=== PATIENT | female | born 1975 | race Caucasian/White ===

== ENCOUNTER 2017-04-30 05:26 | Emergency (ER) | payer BC ==
[2017-04-30] MEDS ORDERED: LORazepam 2 MG/ML MDV IVPUSH ONE (05:43)
[2017-04-30] MEDS ORDERED: Metoprolol Tartrate 5 MG/5 ML SDV IVPUSH ONE (05:43)
--- NOTE | 2017-04-30 05:51 | EDM.PDOC ---
ED HPI GENERAL MEDICAL PROBLEM - General Chief Complaint: Chest Pain Stated Complaint: CHEST PAIN/NUMBNESS Time Seen by Provider: 04/30/17 05:35 Source of Information: Reports: Patient History Limitations: Reports: No Limitations - History of Present Illness INITIAL COMMENTS - FREE TEXT/NARRATIVE: This is a 41-year-old male. Driving on on her way to [place] she had onset of shortness of breath and rapid beating heart beating rapidly onset of chest tightness with numbness in her arms felt dizzy like she was going to pass out. She pulled off the exit at [place] and took her anxiety medication and it seemed to ease up some but then when she pulled back on the highway at all seem to come back. She comes to the ER for evaluation. She's had these episodes before thought to be due to stress or anxiety and her most recent one was back in January. She has no history of cardiac disease. When I went into the room she does appear to be somewhat anxious and breathing rapidly. She denies any recent illnesses no [id number] medications. Treatments [employer]: Reports: Other Medication(s) Other Treatments [employer]: ativan Chest Pain Score (Numeric/FACES): 8 - Related Data Allergies Allergy/AdvReac Type Severity Reaction Status Date / Time No Known Allergies Allergy Verified 04/30/17 05:31 Home Meds: Home Meds Fexofenadine/Pseudoephedrine [Pat-D 24 Hour Tablet] 1 each PO DAILY [History] LORazepam [Ativan] 0.5 mg PO TID PRN 04/30/17 [History] Thyroid,Pork [[place] Thyroid] 120 mg PO DAILY 04/30/17 [History] Past Medical History HEENT History: Reports: Impaired Vision Other HEENT History: wears corrective lenses ADMISSIONS CONSULTANT History: Reports: Psychiatric History: Reports: Anxiety Endocrine/Metabolic History: Reports: Hypothyroidism - Past Surgical History GI Surgical History: Reports: Cholecystectomy Female Surgical History: Reports: Section Other Female Surgeries/Procedures: x3 Social & Family History - Tobacco Use Smoking Status *Q: Current Every Day Smoker Years of Tobacco use: 20 Packs/Tins Daily: 0.5 Used Tobacco, but Quit: No Second Hand Smoke Exposure: No - Caffeine Use Caffeine Use: Reports: Coffee - Recreational Drug Use Recreational Drug Use: No ED ROS GENERAL - Review of Systems Review Of Systems: See Below Constitutional: Denies: Fever, Chills HEENT: Reports: No Symptoms Respiratory: Reports: Shortness of Breath. Denies: Cough Cardiovascular: Reports: Chest Pain Endocrine: Reports: Other (History of hypothyroidism) GI/Abdominal: Denies: Diarrhea, Nausea, Vomiting : Reports: No Symptoms Musculoskeletal: Reports: No Symptoms Skin: Reports: No Symptoms Neurological: Reports: Dizziness, Numbness, Tingling Psychiatric: Reports: Anxiety Hematologic/Lymphatic: Reports: No Symptoms ED EXAM, GENERAL - Physical Exam Exam: See Below Exam Limited By: No Limitations General Appearance: Alert, WD/WN, Mild Distress Eye Exam: Bilateral Eye: Normal Inspection Ears: Normal External Exam Nose: Normal Inspection Throat/Mouth: Normal Lips, Other (Her voice has a tremor in it as she talks) Head: Normocephalic Neck: Normal Inspection, Supple Respiratory/Chest: Lungs Clear, Other (Rapid respirations with a rate approximately 20). No: Crackles, Rales, Rhonchi, Wheezing Cardiovascular: Regular Rate, Rhythm, Tachycardia GI/Abdominal: Soft, Non-Tender Back Exam: Full Range of Motion Extremities: Normal Inspection, Normal Range of Motion, Other (Complains of tingling in her hands, and she felt like she was having some spasms in her forearms) Neurological: Alert, Oriented Psychiatric: Anxious Skin Exam: Warm, Dry EKG INTERPRETATION EKG Date: 04/30/17 Time: 05:32 Rhythm: Other (Sinus tachycardia) EKG Interpretation Comments: Noted to have diffuse ST depression I believe rate related, there is no acute ST elevation noted Course - Vital Signs Last Recorded V/S: Last Vital Signs Temp 97.3 F 04/30/17 05:31 Pulse 106 H 04/30/17 05:50 Resp 22 H 04/30/17 05:31 BP 139/88 04/30/17 05:50 Pulse Ox 100 04/30/17 05:31 - Orders/Labs/Meds Labs: Laboratory Tests 04/30/17 04/30/17 Range/Units 05:41 05:41 WBC 11.34 H (3.98-10.04) K/mm3 RBC 4.51 (3.98-5.22) M/mm3 Hgb 14.6 (11.2-15.7) gm/L Hct 41.9 (34.1-44.9) % MCV 92.9 (79.4-94.8) fl MCH 32.4 H (25.6-32.2) pg MCHC 34.8 (32.2-35.5) g/dl RDW Std Deviation 42.9 (36.4-46.3) fL Plt Count 226 (182-369) K/mm3 MPV 9.6 (9.4-12.3) fl Neut % (Auto) 64.4 (34.0-71.1) % Lymph % (Auto) 25.4 (19.3-51.7) % [place] % (Auto) 7.5 (4.7-12.5) % Eos % (Auto) 2.0 (0.7-5.8) Baso % (Auto) 0.3 (0.1-1.2) % Neut # (Auto) 7.31 H (1.56-6.13) K/mm3 Lymph # (Auto) 2.88 (1.18-3.74) K/mm3 [place] # (Auto) 0.85 H (0.24-0.36) K/mm3 Eos # (Auto) 0.23 (0.04-0.36) K/mm3 Baso # (Auto) 0.03 (0.01-0.08) K/mm3 Sodium 135 L (136-145) mEq/L Potassium 3.4 L (3.5-5.1) mEq/L Chloride 99 (98-107) mEq/L Carbon Dioxide 22 (21-32) mEq/L Anion Gap 17.4 H (5-15) BUN 7 (7-18) mg/dL Creatinine 0.9 (0.55-1.02) mg/dL Est Cr Clr Drug Dosing 72.47 mL/min Estimated GFR (MDRD) > 60 (>60) mL/min BUN/Creatinine Ratio 7.8 L (14-18) Glucose 148 H (74-106) mg/dL Calcium 8.9 (8.5-10.1) mg/dL Total Bilirubin 1.4 H (0.2-1.0) mg/dL AST 17 (15-37) U/L ALT 31 (14-59) U/L Alkaline Phosphatase 33 L (46-116) U/L Troponin I < 0.017 (0.00-0.056) ng/mL Total Protein 8.1 (6.4-8.2) g/dl Albumin 4.3 (3.4-5.0) g/dl Globulin 3.8 gm/dL Albumin/Globulin Ratio 1.1 (1-2) TSH 3rd Generation 3.292 (0.358-3.74) uIU/mL Meds: Medications Discontinued Medications Generic Name Dose Route Start Last Admin Trade Name Miranda PRN Reason Stop Dose Admin Lorazepam 0.5 mg 04/30/17 05:43 04/30/17 05:50 Ativan IVPUSH 04/30/17 05:44 0.5 mg ONETIME ONE Administration Metoprolol Tartrate 5 mg 04/30/17 05:43 04/30/17 05:50 Lopressor IVPUSH 04/30/17 05:44 5 mg ONETIME ONE Administration - Re-Assessments/Exams Free Text/Narrative Re-Assessment/Exam: 04/30/17 07:12 After the medications IV the patient calmed down heart rates come down to 75 blood pressure 107/77 she is feeling good and she wants to go home. We discussed the idea of anxiety and panic attacks and rapid breathing causing numbness and tingling as well as palpitations. I suggested maybe she talked to a counselor regarding her stress in her life at least to explore what might be causing these episodes to occur. Departure - Departure Time of Disposition: 07:12 Disposition: Home, Self-Care 01 Condition: Good Clinical Impression: Heart palpitations, Shortness of breath, Anxiety reaction Forms: ED Department Discharge Additional Instructions: Next time you feel these symptoms coming on take your lorazepam 0.5 mg tablet right away, follow up with your family doctor this week for recheck, continue with your thyroid medication because it is the appropriate dose, return to the ER if you have another anxiety reaction or as needed
[2017-04-30 07:18] VITALS: BP 118/77
== END 2017-04-30 07:30 | disposition home or self-care (01) ==
LOC: JD.ED 05:26
DX: F41.1 Generalized anxiety disorder (principal); E03.9 Hypothyroidism, unspecified; F17.210 Nicotine dependence, cigarettes, uncomplicated; Z90.49 Acquired absence of other specified parts of digestive tract; Z79.899 Other long term (current) drug therapy
CPT/HCPCS: 36415; 80053; 84443; 84484; 85025; 93005; 96374; 96375; 99285; J2060; 99284; J3490